=== PATIENT | male | born 1945 | race Caucasian/White ===

== ENCOUNTER 2023-05-26 08:11 | Outpatient (CLI) | payer MEDICARE ==
[2023-05-26] MEDS ORDERED: Iopamidol 300 61% 100 ML VIAL FS ONE (10:10)
== END 2023-05-26 08:12 | disposition home or self-care (01) ==
LOC: CSHCT 08:11
PROVIDERS: ATTEND Urology
DX: N20.0 Calculus of kidney (principal); Z87.448 Personal history of other diseases of urinary system; N21.0 Calculus in bladder; K80.20 Calculus of gallbladder without cholecystitis without obstruction
CPT/HCPCS: 74178